=== PATIENT | female | born 1950 | race Caucasian/White ===

== ENCOUNTER → 2016-10-20 | Outpatient (CLI) | payer MEDICARE ==
[~2016-10-20] MED LIST: ASCRIPTIN325 MG PO; ASPIRIN 81MG TA81 MG PO; ASPIRIN325 M1 PO; ATENOLOL25 MG PO; CALCIUM 500 + D1 TA1 PO; CYMBALTA60 MG PO; DILAUDID2 MG PO; DILAUDID4 MG PO; HCTZ/LISINOPRIL1 TAB PO; HYDROCODONE 7.51 TAB PO; HYDROCODONE1 TABLET PO; IMITREX100 MG PO; LAXATIVES; LISINOPRIL-HYDR1 TA1 PO; LORCET PLUS PO; NABUMETONE750 MG PO; PERCOCET 325 MG1 TA4 PO; PREMPRO 0.625 M1 TAB PO; PREMPRO LOW DOS1 TAB; STAHIST1 TER PO; VITAMIN D31000 I1 PO; ZESTORETIC 12.51 TA1 PO; ZIAC 5 MG-6.251 TAB PO
== END ==
LOC: RT 11:09
DX: G47.33 Obstructive sleep apnea (adult) (pediatric) (principal)

== ENCOUNTER 2017-02-02 11:50 | Outpatient (CLI) | payer MEDICARE ==
[2017-02-02 11:46] VITALS: BP 122/63
== END 2017-02-02 12:10 | disposition home or self-care (01) ==
LOC: COP 11:50
DX: M81.0 Age-related osteoporosis without current pathological fracture (principal)
CPT/HCPCS: J0897